=== PATIENT | female | born 1960 | race Two or more races ===

== ENCOUNTER 2019-04-09 11:43 | Outpatient (CLI) | payer OTHER ==
[~2019-04-09 11:43] MED LIST: TOPROL XL25 M1
== END 2019-04-09 11:55 | disposition home or self-care (01) ==
LOC: MAMO-SONO 11:43
DX: N60.11 Diffuse cystic mastopathy of right breast (principal); N60.12 Diffuse cystic mastopathy of left breast; Z12.31 Encounter for screening mammogram for malignant neoplasm of breast; Z87.898 Personal history of other specified conditions

== ENCOUNTER 2021-06-20 09:01 | Outpatient (CLI) | payer OTHER | END 2021-06-20 09:20 | disposition home or self-care (01) | LOC: SONOGRAMA 09:01 | DX: M75.101 Unspecified rotator cuff tear or rupture of right shoulder, not specified as traumatic (principal) ==